=== PATIENT | male | born 1930 | race Caucasian/White ===

== ENCOUNTER 2018-05-22 16:38 | Inpatient (IN) | payer MEDICARE ==
[~2018-05-22 16:38] MED LIST: ISOVUE-370 76%-LOCM 1 ML ONE
[2018-05-22 20:15] LABS: #Basophils 0.1 thou/uL (0.0-0.2); #Eosinphils 0.2 thou/uL (0.0-0.7); #Lymphocytes 1.9 thou/uL (1.20-3.40); #Monocytes 0.9 thou/uL (0.11-0.59); #Neutrophils 4.2 thou/uL (1.40-6.50); %Basophils 0.8 % (0.0-1.0); %Eosinophils 2.6 % (0.0-10.0); %Lymphocytes 25.7 % (21.0-51.0); %Monocytes 12.7 % (0.0-10.0); %Neutrophils 58.2 % (42.0-75.0); Hemoglobin 12.6 g/dL (14.0-18.0); Mean Corpuscular HGB CONC 31.8 g/dL (32.0-36.0); Mean Corpuscular Hemoglobin 30.8 pg (27.0-31.0); Mean Corpuscular Volume 96.9 fL (78.0-98.0); Mean Platelet Volume 7.8 fL (7.4-10.4); Platelet Count 198 thou/uL (130-400); RBC Distribution Width 12.8 % (11.5-14.5); Red Blood Cell (RBC) Count 4.08 mill/uL (4.70-6.10); White Blood Cell (WBC) Count 7.3 thou/uL (4.8-10.8)
[2018-05-22 20:34] LABS: ALT (SGPT) 14 U/L (8-55); AST (SGOT) 16 U/L (5-34); Albumin 3.7 g/dL (3.4-4.8); Alkaline Phosphatase 72 U/L (40-150); Anion Gap 13 mmol/L (10-20); BUN (Urea Nitrogen) 20 mg/dL (8.4-25.7); Bilirubin, Total 0.4 mg/dL (0.2-1.2); Calc. Creatinine Clearance 0 mL/min (70-130); Calcium 9.2 mg/dL (7.8-10.44); Carbon Dioxide 26 mmol/L (23-31); Chloride 105 mmol/L (98-107); Estimated GFR-MDRD 74; Glucose 99 mg/dL (83-110); Potassium 4.2 mmol/L (3.5-5.1); Protein, Total 6.7 g/dL (5.8-8.1); Sodium 140 mmol/L (136-145)
[2018-05-22 20:57] LABS: Acetaminophen Less than 6.0 mcg/mL (10.0-30.0); Alcohol Less than 10 mg/dL (Less than 10); CK (CPK) 93 U/L (30-200); Lipase 42 U/L (8-78); Salicylate Less than 8.0 mg/dL (15.0-30.0)
--- NOTE | 2018-05-22 21:51 | CT ---
HEAD CT WITHOUT CONTRAST: 05/22/18 COMPARISON: 02/09/18 HISTORY: Injury, trauma, pain. TECHNIQUE: Axial CT imaging obtained at 5 mm intervals from vertex through skull base without contrast. FINDINGS: There is atherosclerotic calcification of the distal right vertebral artery and bilateral cavernous c arotid arteries. No intracranial hemorrhage, midline shift, mass effect, or ventricular enlargement. No displaced calv arial fracture. Focal area of scalp swelling posteriorly near the vertex on the left consistent with head trauma. IMPRESSION: No intracranial hemorrhage or displaced calvarial fracture. POS: [facility]
[2018-05-22] MEDS ORDERED: Acetaminophen 500 MG TAB ONE (22:11)
[2018-05-22] MEDS ORDERED: Nitroglycerin 2% Ointment 1 INCH/1 GM Packet ONE (22:11)
[2018-05-22 22:25] LABS: Lactic Acid 1.1 mmol/L (0.5-2.2)
--- NOTE | 2018-05-22 22:30 | CT ---
CT OF THE FACIAL BONES: 05/22/18 COMPARISON: None. HISTORY: Fall, trauma, pain. TECHNIQUE: Axial CT imaging at 2.5 mm intervals through the facial bones without contrast. Coronal and sagittal reformatted imaging obtained. FINDINGS: No acute nasal bone fracture is evident. The frontal sinuses are clear. The ethmoid air cells, spheno id sinuses, and maxillary sinuses appear grossly unremarkable aside from mild mucosal thickening of t he posterior right ethmoid air cells and bilateral maxillary sinus alveolar recesses. The zygomatic arches and the pterygoid plates appear intact. The mandible and temporomandibular joint demonstrate no acute findings. There is atherosclerotic calc ification of the carotid system bilaterally, incompletely assessed on this exam. The orbital floor an d the medial orbital wall appears intact bilaterally. There is degenerative change involving the temporomandibular joint on the right. The imaged cervical spine demonstrates multilevel facet and uncovertebral osteophyte formation. IMPRESSION: No acute fracture or evidence of dislocation is seen. Incidental findings as above. POS: [facility]
--- NOTE | 2018-05-22 22:34 | PDOC.FPRHP ---
- History of Present Illness Chief Complaint: Hypoxia w/exertion History of Present Illness: 88 yo M with PMH syncope/falls, CAD w/pacemaker, valve replacement, HTN, DM2 presents for hypoxia with exertion. Patient has been feeling well. Noted to have BP of 105/50 today in neurologist' s office. nurse noted O2 of 90% with exertion today. Neurologist recommended to go to hospital where probate paralegal is. Daughter was unaware that this was not the right hospital. Patient denies CP, palpitations, SOB, dyspnea w/exertion. Patient has history of syncope with falls for past 6-8 months. This has been worked up by neurologist, Dr. Cohen, in [place]. Had done "2 brain scans" and he says nothing is wrong with his brain. Seen by probate paralegal at the [facility], with unknown extent of workup. Says pacemaker works good and they checked his neck arteries. Patient and daughter say they have not figured out cause of recurrent syncope. Lives at home alone with home health and sitters that provide care. Last fall was Monday with LOC, fell and hit head. ED Course: 500 mL bolus - Allergies/Adverse Reactions Allergies Allergy/AdvReac Type Severity Reaction Status Date / Time No Known Allergies Allergy Unverified 05/23/18 02:08 - Home Medications Medication Instructions Recorded Confirmed Type Amiodarone [Cordarone] 100 mg PO BID 05/23/18 05/23/18 History Aspirin [Aspirin Chewable] 81 mg PO DAILY 05/23/18 05/23/18 History Cyanocobalamin (Vitamin B-12) 75 mg PO DAILY 05/23/18 05/23/18 History [Vitamin B12] Fish Oil 1,000 mg PO DAILY 05/23/18 05/23/18 History Metoprolol Succinate 25 mg PO DAILY 05/23/18 05/23/18 History Omeprazole 20 mg PO DAILY 05/23/18 05/23/18 History Rosuvastatin Calcium 20 mg PO HS 05/23/18 05/23/18 History Ubidecarenone [CoQ-10] 20 mg PO DAILY 05/23/18 05/23/18 History Venlafaxine HCl [Venlafaxine HCl 75 mg PO DAILY 05/23/18 05/23/18 History ER] Vits A,C,E/Lutein/Minerals [I-Miguel 1 tab PO DAILY 05/23/18 05/23/18 History Tablet] metFORMIN [Glucophage] 250 mg PO BID-WM 05/23/18 05/23/18 History - History PMHx: CAD, syncope, borderline DM2, HTN, HLD, liver abscess PSHx: porcine mitral valve, pacemaker, cholecystectomy, tonsillectomy FHx: father and mother- CAD, emphysema. Social: No tobacco, alcohol, drug use - Review of Systems General: denies: fever/chills, weight/appetite/sleep changes Eyes: denies: vision changes ENT: denies: nasal congestion Respiratory: denies: cough, shortness of breath, exercise intolerance Cardiovascular: denies: chest pain, palpitation Gastrointestinal: reports: diarrhea (x1). denies: nausea, vomiting, abdominal pain Genitourinary: denies: incontinence Skin: denies: rashes Musculoskeletal: denies: pain Psychological: reports: depression - Vital signs BP: 155/81 HR: 60 RR: 18 Tmax: 98.9 Pox: 97% on RA Wt: 84 kg - Physical Exam Constitutional: NAD HEENT: normocephalic and atraumatic, PERRLA, MMM, oropharynx clear Heart: RRR, normal S1/S2, no murmurs/rubs/gallops Lungs: CTAB, no respiratory distress, good air movement Abdomen: soft, non-tender, bowel sounds present Neurological: no focal deficit Skin: no rash/lesions -Heme/Lymphatic: scattered old bruises from falls Psychiatric: normal mood and affect FMR H&P: Results - Labs Result Diagrams: 05/24/18 05:18 05/24/18 05:18 Lab results: WBC 7.3 thou/uL (4.8-10.8) 05/22/18 20:07 Hgb 12.6 g/dL (14.0-18.0) L 05/22/18 20:07 Hct 39.6 % (42.0-52.0) L 05/22/18 20:07 MCV 96.9 fL (78.0-98.0) 05/22/18 20:07 Plt Count 198 thou/uL (130-400) 05/22/18 20:07 Neutrophils % 58.2 % (42.0-75.0) 05/22/18 20:07 Sodium 140 mmol/L (136-145) 05/22/18 20:07 Potassium 4.2 mmol/L (3.5-5.1) 05/22/18 20:07 Chloride 105 mmol/L (98-107) 05/22/18 20:07 Carbon Dioxide 26 mmol/L (23-31) 05/22/18 20:07 BUN 20 mg/dL (8.4-25.7) 05/22/18 20:07 Creatinine 0.96 mg/dL (0.7-1.3) 05/22/18 20:07 Glucose 99 mg/dL (83-110) 05/22/18 20:07 Lactic Acid 1.1 mmol/L (0.5-2.2) 05/22/18 20:06 Calcium 9.2 mg/dL (7.8-10.44) 05/22/18 20:07 Total Bilirubin 0.4 mg/dL (0.2-1.2) 05/22/18 20:07 AST 16 U/L (5-34) 05/22/18 20:07 ALT 14 U/L (8-55) 05/22/18 20:07 Alkaline Phosphatase 72 U/L (40-150) 05/22/18 20:07 Ammonia 26 umol/L (18-72) 05/22/18 21:08 Creatine Kinase 93 U/L (30-200) 05/22/18 20:06 B-Natriuretic Peptide 210.0 pg/mL (0-100) H 05/22/18 20:06 Serum Total Protein 6.7 g/dL (5.8-8.1) 05/22/18 20:07 Albumin 3.7 g/dL (3.4-4.8) 05/22/18 20:07 Lipase 42 U/L (8-78) 05/22/18 20:06 FMR H&P: A/P - Problem List (1) Syncope Current Visit: Yes Status: Acute Code(s): R55 - SYNCOPE AND COLLAPSE (2) Pulmonary embolism Current Visit: Yes Status: Acute Code(s): I26.99 - OTHER PULMONARY EMBOLISM WITHOUT ACUTE COR PULMONALE (3) Hypodense mass of liver Current Visit: Yes Status: Acute Code(s): R16.0 - HEPATOMEGALY, NOT ELSEWHERE CLASSIFIED (4) Adrenal mass Current Visit: Yes Status: Acute (5) Normocytic anemia Current Visit: Yes Status: Acute Code(s): D64.9 - ANEMIA, UNSPECIFIED (6) Diabetes Current Visit: Yes Status: Acute Code(s): E11.9 - TYPE 2 DIABETES MELLITUS WITHOUT COMPLICATIONS (7) CAD (coronary artery disease) Current Visit: Yes Status: Acute Code(s): I25.10 - ATHSCL HEART DISEASE OF [place] CORONARY ARTERY W/O ANG PCTRS (8) HTN (hypertension) Current Visit: Yes Status: Acute Code(s): I10 - ESSENTIAL (PRIMARY) HYPERTENSION (9) HLD (hyperlipidemia) Current Visit: Yes Status: Acute Code(s): E78.5 - HYPERLIPIDEMIA, UNSPECIFIED (10) Pacemaker Current Visit: Yes Status: Acute Code(s): Z95.0 - PRESENCE OF CARDIAC PACEMAKER - Plan Syncope - will request records to know what workup has already been completed - CT head/face negative for acute process - echo pending - carotid doppler pending. Pt may have already had carotid imaging, will request records - continuous cardiac monitoring, orthostatic BPs - interrogate pacemaker in am - consult PT/OT PE - d-dimer elevated, confirmed on CTA - pt recently taken off anticoagulant per probate paralegal 2/2 risk with recurrent falls. No known coagulopathy. - start therapeutic lovenox - satting well on RA, O2 prn Hypodense areas on L side of liver - new incidental finding - ordered RUQ ultrasound - pending CEA, AFP. Malignancy also in ddx for hypercoagulable state/PE. Adrenal mass - new finding - will request records and consider CT in am Mild airspace disease on CT - started on IV abx in ED. Normal WBC, no sign of systemic infection. - will get procalcitonin and consider d/c antibiotics. Normocytic anemia - 12.6 at baseline compared to previous visit DM2 - borderline per patient - continue home metformin HTN - continue home metoprolol CAD s/p pacemaker - continue home amiodarone HLD - continue home crestor Dispo: admit to telemetry inpatient. expected stay >2 midnights FMR H&P: Upper Level - Pertinent history 88 y/o M presents for eval of low O2 sat to 90% w/ exertion discovered by home health nurse earlier today. Reportedly w/ hx of frequent falls being evaluated by probate paralegal at [facility], [facility], and urology w/ no identifiable cause. Recent fall w/ LOC this Monday which is new for him. Reportedly seen by Neuro in [place] earlier today w/ normal vital signs and told to go to the ER where his probate paralegal is for further eval. - Pertinent findings Vitals per internal investigator note D-dimer - 2.19 BNP - 210 Trop - <0.01 CT brain - NAD CT face - NAD CTA chest - PE in R-pulm artery. Small R-pleural effusion Liver hypodensity and adrenal mass GEN: NAD, resting in bed comfortably PULM: CTA-b/l CARD: RRR, no murmur GI: soft, NTTP, BSx4 Neuro: CN 2-12 intact b/l - Plan Date/Time: 05/22/182232 INayan. Edis Thompson MD, have evaluated this patient and agree with findings/plan as outlined by internal investigator resident. Pertinent changes/additions are listed here. 88 y/o M w/: 1) Syncope - Therapeutic lovenox started in the ER. Will continue w/ plan to transition to novel anticoagulant prior to d/c home as long as patient remains hemodynamically stable. - Pt does have hx of cardiac dz w/ pacemaker in place. Will interrogate to eval for possible underlying dysarrythmia which could be causing patient to have these episodes and #2 will increase his risk of this as well - Will obtain ECHO to eval for any structural disease as we do not have any cardiac imaging on file her for this patient - Pt reportedly had CTA-head/neck to eval his carotids. Will request outside records for this. - Orthostatic vital signs and will continue w/ gentle IVF as patient is pre- load dependent given Pulm A. PE 2) Unprovoked Pulmonary Embolism - Will continue w/ anticoagulation w/ plans to transition to novel agent prior to d/c home if patient's insurance allows - Pt hemodynamically stable w/o evidence of acute end organ damage at this time w/ negative cardiac enzymes - ECHO as noted above - Technically unprovoked, but patient does have numerous liver hypodenisities and an adrenal mass concerning for possible underlying malignancy which would make patient hypercoagulable. Pt reportedly relatively active getting home PT 3x a week, riding a bike, and going dancing. Doubt immobility is cause of this and unlikely w/ underlying genetic hypercoagulable d/o w/ no prior hx of clots in the past. - Will consult PT/OT for further eval and CM as patient will likely need placement at SNF or coronary clinical specialist nursing facility upon discharge - Reportedly w/ recent LE vascular studies. Will obtain outside records. 3) Liver hypodensities/Adrenal Mass - Will obtain CEA to eval for possible underlying GI malignancy w/ liver mets and alpha-fetoprotein for possible underlying HCC. Repeat imaging per radiology recommendations to further eval adrenal mass seen on CTA-Chest and liver hypodensities w/ RUQ-U/S and CT adrenal protocol. 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 Will obtain adrenal labs pending repeat imaging if indicated: cortisol, ACTH, and androstenedione, testosterone, and serum estradiol and consider dexamethasone suppression test 4) Patchy mild air-space disease in lung bases - Seen on CTA, concern for pneumonia by ER physician and started on IV abx - Pt w/o leukocytosis, afebrile, and w/ clear lungs on exam. Likely 2/2 volume loss vs atelectasis - Will obtain pro-drake to further eval and d/c IV abx if negative - Order for IS and PT/OT 5) Other chronic medical problems per internal investigator note Assessment and Plan discussed w/ Dr. Leroy who is in agreement. Addendum - Attending - Attending Attestation Date/Time: 05/23/18 2300 I personally evaluated the patient and discussed the management with Dr. Alcocer and Dr. Thompson I agree with the History, Examination, Assessment and Plan documented above with any addition or exceptions noted below. 88 yo male with CV disease presents for evaluation for EMMANUEL, hypoxia, and syncope. Patient currently under going workup for syncope and recurrent falls with outside neurology and cardiology. Will request records. Over the past few days notes EMMANUEL. Noted to have hypoxia diagnosed by home health today. VS reviewed. Labs reviewed. Imaging reviewed. PE repeated by me and agree with documented above. 1. Right PA pulmonary embolism: Therapeutic lovenox for now. Will review pharmacy coverage in AM to see which oral anticoagulant to be covered. Monitor on tele. Respiratory support as needed. ECHO ordered. Pulm consult. Unable to order coag panel due to therapeutic lovenox dose has already been given. Unprovoked. Consider bilateral LE dopplers to evaluate for DVT burden. 2. Syncope: No provoking or pre-syncopal symptoms. Previous workup requested from cardiology and neurology. Will repeat carotid imaging here. Place on tele. Interrogate pacemaker. Rule out orthostatics. ECHO to evaluate cardiac burden from PE. Cards/neuro as needed. 3. Abnormal imaging findings: Will need follow up imaging as indicated in tonights report. Concern for possible cancer. Will order basic lab test with further imaging in order to make sure patient not hypercoagulable due to unknown cancer. Adjust home meds based on chronic conditions. Asif
--- NOTE | 2018-05-22 22:49 | CT ---
CT ANGIOGRAM CHEST: 05/22/18 COMPARISON: None. HISTORY: Syncope, collapse, elevated D-dimer, loss of consciousness. TECHNIQUE: Axial CT imaging obtained at 2.5 mm intervals from the thoracic inlet through the upper abdomen with IV contrast using CT angiogram protocol. Coronal and sagittal 3D reformatted imaging. FINDINGS: The imaged upper abdomen demonstrates cholecystectomy clips. There are a few scattered hypodense lesi ons within the left lobe of the liver, too small to characterize. Small exophytic lesion emanates fro m upper pole of left kidney, incompletely imaged on this examination. There is a lesion within the ri ght adrenal gland with Hounsfield units of approximately 15, nonspecific. There is a small right pleural effusion. No pericardial or mediastinal fluid is evident. There is ext ensive coronary arterial calcifications. Midline sternotomy wires are present. There is a transvenous pacing device present. 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 There is no axillary, mediastinal or hilar lymphadenopathy. Best seen on axial image 54 and coronal image 68, is clot within the lateral aspect of the pulmonary artery in the right hilar region, consistent with pulmonary embolism. This probably extends into the pulmonary artery supplying the right middle lobe as they are not opacified. No additional filling def ects are seen within the pulmonary arterial vasculature. There is no pneumothorax seen on either side. There is patchy nonspecific mild air space disease noted in both lung bases which may signify infecti ous pneumonitis/aspiration or volume loss. Followup imaging is thus suggested. The osseous structures demonstrate multilevel degenerative change within the spine with disc space na rrowing, degenerative end plate change and osteophyte formation. No acute osseous abnormality is note d. IMPRESSION: 1. Right sided pulmonary arterial embolism. 2. Atherosclerotic disease. 3. Hypodense lesions within the left lobe of the liver and the left kidney for which followup ul trasound is advised. 4. Nonspecific adrenal mass on the right. Followup CT examination of the abdomen using an adrena l mass protocol advised. Results called to Dr. Lazo at 10 p.m., 05/22/18. Code CR POS: [facility]
[2018-05-22] MEDS ORDERED: Enoxaparin Sodium 80 MG/0.8 ML SYRINGE ONE (23:16)
[2018-05-22 23:58] LABS: Bilirubin Negative (Negative); Blood, Urine Negative (Negative); Clarity CLEAR (Clear); Glucose, Urine (Dipstick) Negative (Negative); Leukocyte Negative (Negative); Nitrite Negative (Negative); Protein, Urine (Dipstick) Negative (Neg-Trace)
[2018-05-23] LABS: Specific Gravity, Urine 1.058 (1.002-1.036)
[2018-05-23 00:08] LABS: Amphetamine Not Detected (NotDetected); Barbiturates Screen Not Detected (NotDetected); Benzodiazepine Screen Not Detected (NotDetected); Cocaine Metabolite Screen Not Detected (NotDetected); Medtox Control Line Valid? VALID (VALID); Medtox Reader # READER 4; Methadone Not Detected (NotDetected); Methamphetamine Not Detected (NotDetected); Opiate Screen Not Detected (NotDetected); Oxycodone Screen Not Detected (NotDetected); Phencyclidine (PCP) Not Detected (NotDetected); THC/Cannabinoid Screen Not Detected (NotDetected); Tricyclic Screen Not Detected (NotDetected)
[2018-05-23] MEDS ORDERED: Ondansetron ODT 4 MG TAB PO PRN (01:50)
[2018-05-23 04:00] LABS: #Eosinphils 0.2 thou/uL (0.0-0.7); #Lymphocytes 1.6 thou/uL (1.20-3.40); #Monocytes 0.9 thou/uL (0.11-0.59); #Neutrophils 3.4 thou/uL (1.40-6.50); %Basophils 0.2 % (0.0-1.0); %Eosinophils 3.1 % (0.0-10.0); %Monocytes 14.5 % (0.0-10.0); %Neutrophils 56.1 % (42.0-75.0); Hemoglobin 12.4 g/dL (14.0-18.0); Mean Corpuscular HGB CONC 32.7 g/dL (32.0-36.0); Mean Corpuscular Hemoglobin 31.7 pg (27.0-31.0); Mean Corpuscular Volume 96.8 fL (78.0-98.0); Platelet Count 184 thou/uL (130-400); RBC Distribution Width 12.8 % (11.5-14.5); Red Blood Cell (RBC) Count 3.91 mill/uL (4.70-6.10)
[2018-05-23 04:19] LABS: Anion Gap 14 mmol/L (10-20); BUN (Urea Nitrogen) 20 mg/dL (8.4-25.7); Calc. Creatinine Clearance 0 mL/min (70-130); Calcium 9.1 mg/dL (7.8-10.44); Carbon Dioxide 24 mmol/L (23-31); Chloride 106 mmol/L (98-107); Estimated GFR-MDRD 78; Glucose 124 mg/dL (83-110); Potassium 4.2 mmol/L (3.5-5.1); Sodium 140 mmol/L (136-145)
[2018-05-23 05:13] LABS: CEA, Serum 1.6 ng/mL (< or = 5.0)
--- NOTE | 2018-05-23 05:55 | PDOC.FM ---
- Subjective Subjective: NAEO. Patient endorsed headache overnight that resolved on its own. Patient currently has no issues or complaints. He denies SOB, chest or abdominal pain, NVD, vision changes, weakness. - Objective MAR Reviewed: Yes Result Diagrams: 05/23/18 03:50 05/23/18 03:50 Phys Exam - Physical Examination Constitutional: NAD HEENT: PERRLA, moist MMs, sclera anicteric Neck: supple, full ROM Respiratory: clear to auscultation bilateral Cardiovascular: RRR Gastrointestinal: soft, non-tender, no distention, positive bowel sounds Musculoskeletal: no edema Neurological: non-focal, moves all 4 limbs Psychiatric: normal affect, A&O x 3 Deviation from normal: large ecchymosis on right side face Dx/Plan (1) Adrenal mass Status: Acute (2) CAD (coronary artery disease) Code(s): I25.10 - ATHSCL HEART DISEASE OF [place] CORONARY ARTERY W/O ANG PCTRS Status: Acute (3) Diabetes Code(s): E11.9 - TYPE 2 DIABETES MELLITUS WITHOUT COMPLICATIONS Status: Acute (4) HLD (hyperlipidemia) Code(s): E78.5 - HYPERLIPIDEMIA, UNSPECIFIED Status: Acute (5) HTN (hypertension) Code(s): I10 - ESSENTIAL (PRIMARY) HYPERTENSION Status: Acute (6) Hypodense mass of liver Code(s): R16.0 - HEPATOMEGALY, NOT ELSEWHERE CLASSIFIED Status: Acute (7) Normocytic anemia Code(s): D64.9 - ANEMIA, UNSPECIFIED Status: Acute (8) Pacemaker Code(s): Z95.0 - PRESENCE OF CARDIAC PACEMAKER Status: Acute (9) Pulmonary embolism Code(s): I26.99 - OTHER PULMONARY EMBOLISM WITHOUT ACUTE COR PULMONALE Status : Acute (10) Syncope Code(s): R55 - SYNCOPE AND COLLAPSE Status: Acute - Plan Plan: Syncope - will request records to know what workup has already been completed - CT head/face negative for acute process - Echo pending - Carotid doppler showing 50-69% stenosis of right ICA. Will consider ordering CTA head/neck. - Continuous cardiac monitoring, Orthostatic BPs - Interrogate pacemaker in am - Consult PT/OT PE, unprovoked D-dimer elevated, confirmed on CTA - Pt recently taken off anticoagulant per biostatistician 2/2 risk with recurrent falls. No known coagulopathy. - Start therapeutic lovenox - Satting well on RA, O2 prn - Concern for malignancy - CEA neg, AFP ordered; had colonoscopy 3 years ago that was normal Hypodense areas on L side of liver New incidental finding - RUQ ultrasound showing hepatic cysts; no solid mass - CEA neg; AFP pending Adrenal mass New finding - will request records and consider CT for adrenals in am Mild airspace disease on CT - Started on IV abx in ED. Normal WBC, no sign of systemic infection. - Procal negative at 0.03, will d/c abx Normocytic anemia - 12.6 at baseline compared to previous visit - Will continue to monitor w/ CBCs DM2 - Borderline per patient - Continue home metformin HTN - continue home metoprolol CAD s/p pacemaker - continue home amiodarone HLD - continue home crestor Dispo: monitor on telemetry inpatient. expected stay >2 midnights Addendum - Attending - Attending Attestation Date/Time: 05/23/18 3661 I personally evaluated the patient and discussed the management with Dr. Dejesus I agree with the History, Examination, Assessment and Plan documented above with any addition or exceptions noted below. Pulmonary Embolism- no obvious cause as neg lower extremity dopplers. Patient currently on therapeutic lovenox. Difficult clinical scenario as PMH of intracranial bleed in the past-per his report- and recurrent syncopal events that have not had cause identified by PCP, cardiology or neurology. Anticoag for afib discontinued several months ago due to fall risk. No obvious malignancy to cause hypercoagulable state. No hypoxia at rest. Recurrent syncope and falls- ECHO ordered. Moderate R ICA [id number]%- will need further evaluation with CT if hasn't had previously. Will try and communicate with PCP-Dr Moreno and Dr. Gay to discuss anticoagulation and PMH in more detail. If anticoagulation is needed, safest drug is probably coumadin.
--- NOTE | 2018-05-23 08:34 | ULT ---
BILATERAL CAROTID DUPLEX ULTRASOUND: DATE: 05/23/18 HISTORY: Syncope. TECHNIQUE: Rodriguez scale ultrasound with color flow and spectral Doppler imaging of the extracranial carotid artery systems performed bilaterally. FINDINGS: There is plaque formation on either side. The peak systolic velocity in the right ICA measures 126 cm/second with an end-diastolic velocity of 34 cm/second and a systolic ratio of 1.92. The peak systolic velocity in the left ICA measures 63 cm/second with an end-diastolic velocity of 25 cm/second and a systolic ratio of 0.76. Flow in both vertebral arteries remains antegrade. IMPRESSION: Moderate (50-69%) stenosis involving the right ICA. POS: [facility]
--- NOTE | 2018-05-23 08:37 | ULT ---
SONOGRAM RIGHT UPPER QUADRANT: History: Abdominal CT. Liver hypodensities. Comparison: CT chest 05-22-18. FINDINGS: Gallbladder is surgically absent. Common duct is 0.3 cm. Within the left liver lobe, a slightly compl ex cluster of small cysts measures up to 2.4 cm. A cyst on the right liver lobe centrally is 2.7 cm g reatest diameter. These correlate with the lesions on recent CT exam. Small cysts project superiorly from the right kidney and is somewhat exophytic. Left kidney was not i burak on the right upper quadrant exam. IMPRESSION: 1. Status post cholecystectomy. 2. Hepatic cysts correlating with the low density lesions on recent CT. No solid masses are visible. POS: [facility]
[2018-05-23] MEDS ORDERED: Enoxaparin Sodium 80 MG/0.8 ML SYRINGE ONE (08:48)
[2018-05-23] MEDS ORDERED: Acetaminophen 325 MG TAB ONE (09:00)
[2018-05-23] MEDS: Acetaminophen 325 MG TAB PO PRN ×2 (09:13→16:54)
[2018-05-23] MEDS: Enoxaparin Sodium 80 MG/0.8 ML SYRINGE SC SCH ×2 (09:19→21:15)
[2018-05-23 10:19] LABS: INR-International Normal Ratio 1.1; Prothrombin Time 14.4 SEC (12.0-14.7)
[2018-05-23 10:20] LABS: PTT 45.1 SEC (22.9-36.1)
[2018-05-23 11:07] VITALS: BMI 25.4
--- NOTE | 2018-05-23 14:39 | ULT ---
ULTRASOUND WITH DOPPLER DUPLEX VENOUS LOWER EXTREMITIES BILATERAL: HISTORY: An 88-year-old male with pulmonary thromboembolism. TECHNIQUE: Color flow Doppler, spectral waveform analysis of pulsed Doppler, and de la rosa-scale imaging with rodo ghulam and augmentation, were used to evaluate the bilateral common femoral, femoral, popliteal, gas and oil servicer ior tibial, and superficial femoral veins, and the proximal portions of the profunda femoral and grea ter saphenous veins. FINDINGS: There is normal compressibility, demonstration of blood flow by color Doppler and pulsed Doppler, and response to augmentation in all interrogated veins. IMPRESSION: Negative. No deep vein thrombosis in the bilateral lower extremities. jn[] POS: [facility]
[2018-05-23] MEDS ORDERED: Rosuvastatin 20 MG TAB PO SCH (22:15)
[2018-05-23] MEDS ORDERED: Amiodarone 200 MG TAB PO SCH (22:15)
[2018-05-24] MEDS: Acetaminophen 325 MG TAB PO PRN ×3 (02:50→21:41)
[2018-05-24 05:51] LABS: Anion Gap 13 mmol/L (10-20); BUN (Urea Nitrogen) 12 mg/dL (8.4-25.7); Calc. Creatinine Clearance 76 mL/min (70-130); Calcium 9.1 mg/dL (7.8-10.44); Carbon Dioxide 23 mmol/L (23-31); Chloride 107 mmol/L (98-107); Estimated GFR-MDRD Greater than 90; Glucose 112 mg/dL (83-110); Potassium 4.2 mmol/L (3.5-5.1); Sodium 139 mmol/L (136-145)
[2018-05-24 06:07] LABS: #Basophils 0.1 thou/uL (0.0-0.2); #Eosinphils 0.3 thou/uL (0.0-0.7); #Lymphocytes 1.6 thou/uL (1.20-3.40); #Monocytes 0.9 thou/uL (0.11-0.59); %Eosinophils 3.8 % (0.0-10.0); %Lymphocytes 23.6 % (21.0-51.0); %Neutrophils 58.7 % (42.0-75.0); Hemoglobin 12.7 g/dL (14.0-18.0); Mean Corpuscular HGB CONC 31.4 g/dL (32.0-36.0); Mean Corpuscular Hemoglobin 30.5 pg (27.0-31.0); Mean Corpuscular Volume 97.1 fL (78.0-98.0); Mean Platelet Volume 8.1 fL (7.4-10.4); Platelet Count 199 thou/uL (130-400); RBC Distribution Width 12.9 % (11.5-14.5); Red Blood Cell (RBC) Count 4.18 mill/uL (4.70-6.10); White Blood Cell (WBC) Count 6.8 thou/uL (4.8-10.8)
--- NOTE | 2018-05-24 06:12 | PDOC.FM ---
Addendum entered and electronically signed by Angelique Dejesus MD 05/24/18 12:06 : Will start patient on 10mg BID of eliquis for 7 days. Then 5mg PO BID for 3 months. Then half strength indefinitely. Patient will follow up with store stock help and PCP. Original Note: - Subjective Subjective: NAEO. Patient resting comfortably in bed this morning. at the bedside - states she is still concerned about the cause of the patient's falls. She states that he has continued to have falls over 2-3 years and more frequently over the last 6 months. States the eliquis was stopped due to falls. - Objective MAR Reviewed: Yes Vital Signs & Weight: Vital Signs (12 hours) Temp Pulse Resp BP BP Pulse Ox 05/24/18 06:07 77 170/82 H 05/24/18 03:02 98.7 F 70 12 177/89 H 96 05/23/18 21:15 97 05/23/18 21:11 98.3 F 70 18 152/79 H 97 Weight Weight 85.275 kg I&O: 05/22/18 05/23/18 05/24/18 06:59 06:59 06:59 Output Total 500 Balance -500 Result Diagrams: 05/24/18 05:18 05/24/18 05:18 Phys Exam - Physical Examination Constitutional: NAD HEENT: PERRLA, moist MMs, sclera anicteric Neck: supple, full ROM Respiratory: clear to auscultation bilateral Cardiovascular: RRR Gastrointestinal: soft, non-tender, positive bowel sounds Musculoskeletal: no edema Neurological: non-focal Psychiatric: normal affect, A&O x 3 Skin: no rash Dx/Plan (1) Adrenal mass Status: Acute (2) CAD (coronary artery disease) Code(s): I25.10 - ATHSCL HEART DISEASE OF [place] CORONARY ARTERY W/O ANG PCTRS Status: Acute (3) Diabetes Code(s): E11.9 - TYPE 2 DIABETES MELLITUS WITHOUT COMPLICATIONS Status: Acute (4) HLD (hyperlipidemia) Code(s): E78.5 - HYPERLIPIDEMIA, UNSPECIFIED Status: Acute (5) HTN (hypertension) Code(s): I10 - ESSENTIAL (PRIMARY) HYPERTENSION Status: Acute (6) Hypodense mass of liver Code(s): R16.0 - HEPATOMEGALY, NOT ELSEWHERE CLASSIFIED Status: Acute (7) Normocytic anemia Code(s): D64.9 - ANEMIA, UNSPECIFIED Status: Acute (8) Pacemaker Code(s): Z95.0 - PRESENCE OF CARDIAC PACEMAKER Status: Acute (9) Pulmonary embolism Code(s): I26.99 - OTHER PULMONARY EMBOLISM WITHOUT ACUTE COR PULMONALE Status : Acute (10) Syncope Code(s): R55 - SYNCOPE AND COLLAPSE Status: Acute - Plan Plan: Syncope - will request records to know what workup has already been completed; Discussed with store stock help - medications have been adjusted. Syncopal episodes thought to be due to orthostasis. Work up has revealed no other leading cause. - CT head/face negative for acute process - Echo pending - Carotid doppler showing 50-69% stenosis of right ICA. Will consider ordering CTA head/neck. - Venogram negative for DVTs - Continuous cardiac monitoring, Orthostatic BPs - Interrogate pacemaker in am - Consult PT/OT PE, unprovoked D-dimer elevated, confirmed on CTA - Pt recently taken off anticoagulant per store stock help 2/2 risk with recurrent falls. No known coagulopathy. - Start therapeutic lovenox - Satting well on RA, O2 prn - Concern for malignancy - CEA neg, AFP ordered; had colonoscopy 3 years ago that was normal - Discussed with patient and this morning - would like to go back on eliquis for stroke prevention. Discussed the risks of bleeds and family acknowledges understanding. They state they will follow up with cardiology. Hypodense areas on L side of liver New incidental finding - RUQ ultrasound showing hepatic cysts; no solid mass - CEA neg; AFP pending Adrenal mass New finding - will request records and consider CT for adrenals in am Mild airspace disease on CT Started on IV abx in ED. Normal WBC, no sign of systemic infection. - Procal negative at 0.03, will d/c abx Normocytic anemia - 12.6 at baseline compared to previous visit - Will continue to monitor w/ CBCs DM2 - Borderline per patient - Continue home metformin HTN - continue home metoprolol CAD s/p pacemaker - continue home amiodarone HLD - continue home crestor Dispo: possible discharge later today or tomorrow Addendum - Attending - Attending Attestation Date/Time: 05/24/18 9832 I personally evaluated the patient and discussed the management with Dr. Dejesus. Patient feeling better. No recurrent syncope. I agree with the History, Examination, Assessment and Plan documented above with any addition or exceptions noted below. PE- unprovoked and no obvious malignancy- patient with history of multiple falls and hx of subdural hematoma in 2013. Risks and benefits discussed with patient and his in detail as well as his store stock help and PCP and everyone in agreement to place on anticoagulation. treat with eliquis. Abnormal carotid doppler- CTA neck shows severe PAUL blockage- discuss with patient inpatient vs outpatient consultation and proceed as family desires.
[2018-05-24] MEDS ORDERED: CYANOCOBALAMIN PO SCH (09:00)
[2018-05-24] MEDS ORDERED: Amiodarone 200 MG TAB PO SCH ×2 (09:00→17:00)
[2018-05-24] MEDS ORDERED: UBIDECARENONE 20 MG PO SCH (09:00)
[2018-05-24] MEDS: metFORMIN 500 MG TAB PO SCH ×2 (09:34→17:25)
[2018-05-24] MEDS: Venlafaxine HCl XR 75 MG CAP PO SCH (09:34)
[2018-05-24] MEDS: Amiodarone 200 MG TAB PO SCH (09:34)
[2018-05-24] MEDS: Aspirin Chewable 81 MG TAB PO SCH (09:34)
[2018-05-24] MEDS: Fish Oil 1,000 MG CAP PO SCH (09:34)
[2018-05-24] MEDS: Enoxaparin Sodium 80 MG/0.8 ML SYRINGE SC SCH (09:35)
[2018-05-24] MEDS ORDERED: Lisinopril 10 MG TAB PO SCH (12:30)
--- NOTE | 2018-05-24 12:34 | CT ---
CT BRAIN WELL CAROTID AND INTRACRANIAL CTA: Two-D and 3D reconstructed images performed on an independent 3D work station. FINDINGS: Noncontrast-enhanced CT images of the brain demonstrate a left parietal scalp hematoma. No underlyin g calvarial fracture is seen. No evidence of acute intracranial masses, hemorrhages, or strokes seen. 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 There is also a right infraorbital soft tissue hematoma. CAROTID AND INTRACRANIAL CTA: There is some atherosclerotic calcification seen of the aorta. The right brachiocephalic artery is patent. Extensive atherosclerotic plaque is seen in the origin of the right subclavian artery. The right vertebral artery contains some minimal plaque in the origin of the right vertebral artery. The left vertebral artery is patent. Both vertebral arteries are seen jointing together intracrania lly. RIGHT COMMON CAROTID: The right common carotid artery is patent along its course. There is extensive dense atherosclerotic plaque in the origin of the right ICA resulting in severe approximately 80-90% origin right ICA sten osis. More distally, the right ICA is patent, although tortuous. Some atherosclerotic plaque is seen in the supraclinoid right ICA. LEFT COMMON CAROTID: The left common carotid artery is patent. Atherosclerotic plaque is seen in the proximal aspect of t he left ICA resulting in approximately 40-50% left ICA stenosis. More distally, the left ICA is otero nt. Good flow is seen in the ALICE and MCA vessels. IMPRESSION: 1. Left parietal and right infraorbital soft tissue hematomas without evidence of acute fractures. 2. Severe right internal carotid artery and moderate left internal carotid artery origin carotid danny nosis. POS: GIOVANNA
[2018-05-24] MEDS: Ibuprofen 600 MG TAB PO PRN (18:33)
[2018-05-24] MEDS ORDERED: Rosuvastatin 20 MG TAB PO SCH (21:00)
[2018-05-24] MEDS ORDERED: Apixaban 5 MG TAB PO SCH (21:00)
--- NOTE | 2018-05-24 21:37 | CON ---
DATE OF CONSULTATION: This is an 88-year-old gentleman who has been having frequent falls over the past six months. He has been seen by Dr. Gay in this regard, who felt that they were probably orthostatic. He also felt he probably had some neuropathy with a shuffling gait. He has had previous atrial fibrillation and a pacemaker placement and has recently had his Eliquis stopped due to his falls. On admission here, he was found to have some poor perfusion to the right middle lobe suspicious for pulmonary embolism of undetermined age. He had no DVT on his lower extremity venous ultrasound. He had a carotid ultrasound showing noncritical carotid disease and a CTA of the head and neck showed what was read out as 80% to 90% right carotid stenosis, but probably is closer to 70%. He has had several carotid ultrasounds over the previous few years showing noncritical disease. He has had no hemispheric symptoms, but typically when he is up maybe turns his head to one side or the other, he will collapse with only one episode of loss of consciousness. The states that it typically does not occur when he raises from the sitting position, but when he is already standing still. In any event, I have discussed the situation with the patient's family and Dr. Gay and did not feel that intervention for his right carotid stenosis is indicated. It is not a critical lesion and certainly is not causing his symptoms and should be left alone. Dr. Gay feels that the Eliquis is probably appropriate given the fact that he may have had a PE at some point and is not as concerned about falls with his Eliquis. Job ID: [id number]
[2018-05-25] MEDS: Ibuprofen 600 MG TAB PO PRN (00:41)
[2018-05-25 05:20] LABS: #Basophils 0.1 thou/uL (0.0-0.2); #Eosinphils 0.3 thou/uL (0.0-0.7); #Lymphocytes 1.9 thou/uL (1.20-3.40); #Monocytes 0.8 thou/uL (0.11-0.59); #Neutrophils 3.1 thou/uL (1.40-6.50); %Basophils 1.3 % (0.0-1.0); %Eosinophils 4.5 % (0.0-10.0); %Lymphocytes 31.7 % (21.0-51.0); %Monocytes 12.8 % (0.0-10.0); %Neutrophils 49.8 % (42.0-75.0); Hemoglobin 12.2 g/dL (14.0-18.0); Mean Corpuscular HGB CONC 31.5 g/dL (32.0-36.0); Mean Corpuscular Hemoglobin 30.6 pg (27.0-31.0); Mean Platelet Volume 7.8 fL (7.4-10.4); Platelet Count 194 thou/uL (130-400); White Blood Cell (WBC) Count 6.1 thou/uL (4.8-10.8)
[2018-05-25 05:42] LABS: Anion Gap 13 mmol/L (10-20); BUN (Urea Nitrogen) 17 mg/dL (8.4-25.7); Calc. Creatinine Clearance 69 mL/min (70-130); Calcium 8.7 mg/dL (7.8-10.44); Carbon Dioxide 24 mmol/L (23-31); Chloride 104 mmol/L (98-107); Estimated GFR-MDRD 83; Glucose 102 mg/dL (83-110); Potassium 3.9 mmol/L (3.5-5.1); Sodium 137 mmol/L (136-145)
--- NOTE | 2018-05-25 06:23 | PDOC.FM ---
Addendum entered and electronically signed by Angelique Dejesus MD 05/25/18 09:32 : Correction: daughter at the bedside, not the . Original Note: - Subjective Subjective: NAEO. Patient resting comfortably in bed. States he feels well. at the bedside. States they talked with the CV surg and decided not to intervene on stenosis of right carotid. was asking about neck brace or some other way to prevent falls. Family would still like to proceed with the eliquis but are concerned about the falls the patient has been having. - Objective MAR Reviewed: Yes Vital Signs & Weight: Vital Signs (12 hours) Temp Pulse Resp BP BP BP BP 05/25/18 04:40 97.9 F 60 16 135/69 117/60 159/79 H 05/24/18 20:07 97.8 F 65 18 141/65 H Pulse Ox 05/25/18 04:40 95 05/24/18 20:07 95 Weight Weight 84.776 kg I&O: 05/23/18 05/24/18 05/25/18 06:59 06:59 06:59 Intake Total 460 310 Output Total 1200 700 Balance -740 -390 Result Diagrams: 05/25/18 10:20 05/25/18 10:20 Phys Exam - Physical Examination Constitutional: NAD HEENT: PERRLA, moist MMs, sclera anicteric Neck: full ROM Respiratory: clear to auscultation bilateral Cardiovascular: RRR Gastrointestinal: soft, non-tender, no distention, positive bowel sounds Musculoskeletal: no edema Neurological: non-focal Psychiatric: normal affect, A&O x 3 Deviation from normal: bruising to right side of face Dx/Plan (1) Adrenal mass Status: Acute (2) CAD (coronary artery disease) Code(s): I25.10 - ATHSCL HEART DISEASE OF [place] CORONARY ARTERY W/O ANG PCTRS Status: Acute (3) Diabetes Code(s): E11.9 - TYPE 2 DIABETES MELLITUS WITHOUT COMPLICATIONS Status: Acute (4) HLD (hyperlipidemia) Code(s): E78.5 - HYPERLIPIDEMIA, UNSPECIFIED Status: Acute (5) HTN (hypertension) Code(s): I10 - ESSENTIAL (PRIMARY) HYPERTENSION Status: Acute (6) Hypodense mass of liver Code(s): R16.0 - HEPATOMEGALY, NOT ELSEWHERE CLASSIFIED Status: Acute (7) Normocytic anemia Code(s): D64.9 - ANEMIA, UNSPECIFIED Status: Acute (8) Pacemaker Code(s): Z95.0 - PRESENCE OF CARDIAC PACEMAKER Status: Acute (9) Pulmonary embolism Code(s): I26.99 - OTHER PULMONARY EMBOLISM WITHOUT ACUTE COR PULMONALE Status : Acute (10) Syncope Code(s): R55 - SYNCOPE AND COLLAPSE Status: Acute - Plan Plan: Syncope Received records to know what workup has already been completed; Discussed with lean specialist - medications have been adjusted. Syncopal episodes thought to be due to orthostasis. Work up has revealed no other leading cause. - CT head/face negative for acute process - Echo pending - Carotid doppler showing 50-69% stenosis of right ICA. CTA head/neck showing 80 -90% stenosis of origin of the right internal carotid. CV surg consulted - read is CTA is more like 70% stenosis, likely not the cause of the patient's syncopal episodes. After discussion with patient and Deidra, no intervention necessary at this point in time. - Venogram negative for DVTs - Continuous cardiac monitoring, Orthostatic BPs + for orthostasis: sittin /69, standing 117/60 - Pacemaker interrogated and was normal, no events noted - Consult PT/OT PE, unprovoked D-dimer elevated, confirmed on CTA - Pt recently taken off anticoagulant per lean specialist 2/2 risk with recurrent falls. No known coagulopathy. - Start therapeutic lovenox; will dc lovenox and start eliquis - Satting well on RA, O2 prn - Concern for malignancy as cause of PE- CEA neg, AFP neg; had colonoscopy 3 years ago that was normal - Discussed with patient and this morning - would like to go back on eliquis for stroke prevention. Discussed the risks of bleeds and family acknowledges understanding. They state they will follow up with cardiology - Dr. Gay also contacted and feels reasonable to start eliquis. Will start patient on 10mg BID of eliquis for 7 days. Then 5mg PO BID for 3 months. Then half strength indefinitely. Patient will follow up with lean specialist and PCP. Hypodense areas on L side of liver New incidental finding - RUQ ultrasound showing hepatic cysts; no solid mass - CEA neg; AFP neg Adrenal mass New finding - Consider CT for adrenals in am - Can follow up outpatient for work up Mild airspace disease on CT Started on IV abx in ED. Normal WBC, no sign of systemic infection. - Procal negative at 0.03, will d/c abx Normocytic anemia - 12.6 at baseline compared to previous visit - Will continue to monitor w/ CBCs DM2 - Borderline per patient - Continue home metformin HTN - continue home metoprolol CAD s/p pacemaker - continue home amiodarone HLD - continue home crestor Dispo: discharge today Addendum - Attending - Attending Attestation Date/Time: 05/25/18 0568 I personally evaluated the patient and discussed the management with Dr. Dejesus I agree with the History, Examination, Assessment and Plan documented above with any addition or exceptions noted below. Acute PE- home on eliquis. Discussed fall risk but patient expresses understanding and wants to proceed. Stable for d/c home.
[2018-05-25 07:41] VITALS: BP 176/85; TEMP 97.8
[2018-05-25] MEDS ORDERED: Lisinopril 10 MG TAB PO SCH (09:00)
[2018-05-25] MEDS ORDERED: Apixaban 5 MG TAB PO SCH (09:00)
[2018-05-25] MEDS: Fish Oil 1,000 MG CAP PO SCH (09:05)
[2018-05-25] MEDS: Aspirin Chewable 81 MG TAB PO SCH (09:06)
[2018-05-25] MEDS: Amiodarone 200 MG TAB PO SCH (09:06)
[2018-05-25] MEDS: metFORMIN 500 MG TAB PO SCH (09:06)
[2018-05-25] MEDS: Venlafaxine HCl XR 75 MG CAP PO SCH (09:06)
[2018-05-25 10:31] LABS: Hemoglobin 13.3 g/dL (14.0-18.0); Platelet Count 216 thou/uL (130-400)
--- NOTE | 2018-05-27 00:05 | EKG ---
Test Reason : DIZZINESS Blood Pressure : / mmHG Vent. Rate : 062 BPM Atrial Rate : 056 BPM P-R Int : 000 ms QRS Dur : 120 ms QT Int : 470 ms P-R-T Axes : 000 -20 -59 degrees QTc Int : 477 ms Electronic atrial pacemaker Left ventricular hypertrophy with QRS widening and repolarization abnormality Inferior infarct , age undetermined Abnormal ECG Confirmed by CARLENE PASCUAL, HALINA ([id number]), food editor KEDAR GIL ([id number]) on 05/27/2018 12:04:12 AM Referred By: Confirmed By:HALINA CONCEPCION MD
--- NOTE | 2018-05-28 11:20 | DIS ---
DATE OF ADMISSION: 05/22/2018 DATE OF DISCHARGE: 05/25/2018 RESIDENT: Angelique Dejesus MD. ADMITTING ATTENDING: Dr. Leroy. DISCHARGE ATTENDING: Dr. Lara. CONSULTS: Case Management, CV Surgery, Occupational Therapy. PROCEDURES: None. DISCHARGE MEDICATIONS: 1. Eliquis 10 mg oral as directed. 2. Lisinopril 10 mg oral daily. 3. Metoprolol 25 mg oral daily. 4. Venlafaxine 75 mg oral daily. 5. Lovastatin 20 mg oral at bedtime. 6. Amiodarone 100 mg oral twice daily. 7. Omeprazole 20 mg oral daily. 8. Aspirin 81 mg oral daily. 9. Multivitamin one tablet oral daily. 10. CoQ10, 20 mg oral daily. 11. Fish oil 1000 mg oral daily. 12. Metformin 250 mg oral twice daily with meals. 13. Vitamin B12 75 mg oral daily. Discontinued medications: None. 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 SECONDARY DIAGNOSES: Type 2 diabetes, hypotension, coronary artery disease, status post pacemaker, hyperlipidemia. HISTORY OF PRESENT ILLNESS/HOSPITAL COURSE: This is an 88-year-old male, who presented to the emergency department with a chief complaint of "not feeling well." The patient was noted to have a blood pressure of 105/50 at his neurologist's office. The patient is currently under the care of home health [facility] and the home health nurse noted that O2 saturation of 90% on exertion today. Neurologist recommended that the patient go to the hospital and see the mobile solutions architect there. The daughter was unaware that this was not the right hospital as his mobile solutions architect was at [facility]. On presentation, the patient denied any chest pain, palpitations, shortness of breath, or dyspnea with exertion. The patient states he has been having recurrent cough more frequently over the last 6 to 8 months. The patient has been worked up by his neurologist, Dr. Cohen, in [place]. Per the patient, he had 2 "brain scans" and nothing is wrong with his brain. The patient has also been seen by mobile solutions architect , Dr. Gay where a workup has been performed to find the etiology of his fall. The patient had a history of pacemaker, which was interrogated and shows no events or episodes recently. The patient states that he also had an ultrasound of his neck that showed no blockages as recently as January of 2018. In the ED, the patient was given a 500 mL bolus. On presentation, the patient was found to have an elevated D-dimer of 2.19. CTA of chest/thorax showed a right-sided pulmonary arterial embolism. The CT also showed a hypodense lesion within the left lobe of the liver. A nonspecific adrenal mass was also found on the right. An ultrasound of the liver was performed that showed hepatic cysts present and we are following that. The adrenal mass will be worked up as outpatient further with a CT. Brain CT was performed that showed no bleed. Carotid Doppler study was performed that showed 50% to 69% stenosis involving the right ICA. A venogram was performed that showed no DVT. CT of head and neck was performed that showed 80% to 90% atherosclerotic plaque at the origin of the right ICA. CV Surgery was consulted at this point for possible carotid endarterectomy procedure. Dr. Holloway evaluated the patient and read the CT and stated that the stenosis was more like 70% and no intervention was necessary at this time. Dr. Holloway also did not think that the stenosis of the right ICA was the cause of the patient's fall. Dr. Gay was contacted who is the patient's mobile solutions architect at [facility] who believes that the fall was mostly likely related to the patient's orthostasis. Orthostatic blood pressures taken in the hospital were positive. After discussion with the family, they wished to proceed with restarting Eliquis to treat the patient' s PE. Risks of bleeding were discussed with the patient and family, who agreed to continue with Eliquis treatment. The patient does have history of subdural bleed in 2013, and the patient has had significant falls over the last 6 to 8 months. The risks and benefits of re-starting anticoagulation in a patient with this history was discussed at length and the family ultimately decided they wanted to proceed with anticoagulation despite the risks in order to treat the PE and prevent future stroke. They understand to prevent future falls as best as possible so as to protect patient from a devastating brain bleed. The patient will have close followup with PCP and his specialist. DISPOSITION: Stable. DISCHARGE INSTRUCTIONS: 1. Location, home with home health. 2. Activity, ad francisco. 3. Diet, heart healthy and low sodium. 4. Follow up with PCP (Dr. Carter in [place]) within 7 days and follow up with mobile solutions architect, Dr. Gay, within 10 days. Job ID: [id number] [id number]
== END 2018-05-25 12:15 | disposition home health service (06) | DRG 176 ==
LOC: ERS 16:38 → ERHOLD 22:09 → 2NO 05-23 10:37
PROVIDERS: ADMIT Student in an Organized Health Care Education/Training Program; ATTEND Student in an Organized Health Care Education/Training Program
DX: I26.99 Other pulmonary embolism without acute cor pulmonale (principal); I95.1 Orthostatic hypotension; I25.10 Atherosclerotic heart disease of native coronary artery without angina pectoris; E11.9 Type 2 diabetes mellitus without complications; I10 Essential (primary) hypertension; E78.5 Hyperlipidemia, unspecified; R16.0 Hepatomegaly, not elsewhere classified; E27.8 Other specified disorders of adrenal gland; D64.9 Anemia, unspecified; R29.6 Repeated falls; I49.3 Ventricular premature depolarization; K76.89 Other specified diseases of liver; I65.21 Occlusion and stenosis of right carotid artery; Z79.84 Long term (current) use of oral hypoglycemic drugs; Z79.899 Other long term (current) drug therapy; Z95.0 Presence of cardiac pacemaker; Z90.49 Acquired absence of other specified parts of digestive tract; Z90.89 Acquired absence of other organs
CPT/HCPCS: 36415; 36416; 70450; 70486; 70496; 70498; 71275; 76705; 80048; 80053; 80306; 80307; 81003; 82105; 82140; 82378; 82550; 83605; 83690; 83880; 84145; 84443; 84484; 85025; 85379; 85610; 85730; 87040; 87086; 93005; 93306; 93880; 93970; 96361; 96365; 96372; J1650; J1956; Q9966